=== PATIENT | male | born 1950 | race Caucasian/White ===

== ENCOUNTER 2018-09-28 09:20 | Outpatient (CLI) | payer OTHER ==
[2018-09-28] MEDS ORDERED: DIPH25TA2 PO (10:34)
[2018-09-28] MEDS ORDERED: ZOLP10TA5 PO (10:34)
[2018-09-28] MEDS ORDERED: FINA5TAB4 PO (10:34)
[2018-09-28] MEDS ORDERED: TAMS-11 PO (10:34)
[2018-09-28] MEDS ORDERED: ASPI81TA45 PO (10:34)
[2018-09-28 10:38] LABS: MICROSCOPIC NOT IND
[2018-09-28 10:39] LABS: CULTURE INDICATED? NO
[2018-09-28 10:41] LABS: BASOPHILS # (AUTO) 0.03 x10^3/uL (0-0.1); BASOPHILS % (AUTO) 1 % (0-1); EOSINOPHILS % (AUTO) 4 % (1-7); LYMPHOCYTES % (AUTO) 24 % (22-44); MD NO; MEAN CORPUSCULAR HEMOGLOBIN 31.3 pg (27.5-34.5); MEAN CORPUSCULAR HGB CONC 33.5 g/dL (33.2-36.2); MEAN CORPUSCULAR VOLUME 93.4 fL (81-97); MEAN PLATELET VOLUME 7.9 fL (7.4-10.4); MONOCYTES # (AUTO) 0.32 x10^3/uL (0.2-0.8); MONOCYTES % (AUTO) 6 % (2-9); NEUTROPHILS # (AUTO) 3.27 x10^3/uL (1.8-6.8); NEUTROPHILS % (AUTO) 65 % (42-75); PLATELET COUNT 237 x10^3/uL (130-400); RED BLOOD COUNT 5.49 x10^6/uL (4.38-5.82); RED CELL DISTRIBUTION WIDTH 13.1 % (9.4-14.8)
[2018-09-28 10:46] LABS: PROTHROMBIN TIME 10.5 Seconds (9.6-11.5)
[2018-09-28 10:49] LABS: ALBUMIN 4.2 g/dL (3.4-5.0); ANION GAP 6 mmol/L (5-15); CALCIUM 9.3 mg/dL (8.5-10.1); CHLORIDE 107 mmol/L (98-107)
[2018-09-28 10:52] LABS: ALANINE AMINOTRANSFERASE 20 U/L (12-78); ALKALINE PHOSPHATASE 102 U/L (45-117); CREATININE 1.35 mg/dL (0.7-1.3); TOTAL PROTEIN 7.7 g/dL (6.4-8.2)
== END 2018-09-28 23:59 | disposition home or self-care (01) ==
LOC: STAR 09:20
PROVIDERS: ATTEND Neurological Surgery
DX: Z01.818 Encounter for other preprocedural examination (principal); M50.30 Other cervical disc degeneration, unspecified cervical region
CPT/HCPCS: 36415; 71046; 80053; 81003; 85025; 85610; 85730; 93005